=== PATIENT | female | born 1990 | race Caucasian/White ===

== ENCOUNTER → 2016-09-01 | Outpatient (CLI) | payer BC ==
[~2016-09-01] MED LIST: PREN1TAB29
== END | disposition home or self-care (01) ==
LOC: C.LABSPEC 13:59
PROVIDERS: ATTEND Obstetrics & Gynecology
DX: Z34.93 Encounter for supervision of normal pregnancy, unspecified, third trimester (principal)

== ENCOUNTER 2016-09-29 04:21 | Inpatient (IN) | payer BC ==
[~2016-09-29] VITALS: Ht 160 cm; Wt 97.5 kg
[2016-09-29] MEDS ORDERED: LACTATED RINGER'S 1000ML 1,000 ML IV SCH (04:51)
[2016-09-29] MEDS ORDERED: LACTATED RINGER'S 1000ML 1,000 ML IV PRN (04:51)
[2016-09-29] MEDS ORDERED: PENICILLIN G POTASSIUM IV 3 MU in DEXTROSE 5% 100ML 100 ML IV PRN (05:00)
[2016-09-29] MEDS ORDERED: EpHEDrine SULFATE INJ 50 MG/ML AMP ONE (05:01)
[2016-09-29] MEDS ORDERED: FENTANYL 2MCG/ML ROPIV 1.25MG/ML 100ML BAG EPI ONE (05:01)
[2016-09-29] MEDS ORDERED: BUPIVACAINE 0.25% 30 ML VIAL ONE (05:01)
[2016-09-29] MEDS ORDERED: FENTANYL CITRATE INJ 50 MCG/1 ML 2 ML VIAL ONE (05:02)
[2016-09-29] MEDS ORDERED: PENICILLIN G POTASSIUM IV 6 MU in DEXTROSE 5% 250ML 250 ML IV ONE (05:15)
[2016-09-29 05:23] LABS: HEMATOCRIT 35.2 % (37-47); MEAN CELL VOLUME 85.4 fL (80-100); MEAN CORPUSCULAR HEMOGLOBIN 28.2 pg (25-34); PLATELET COUNT 172 K/uL (130-400); RED BLOOD COUNT 4.12 M/uL (4.2-5.4); WHITE BLOOD COUNT 13.32 K/uL (4.8-10.8)
[2016-09-29] MEDS ORDERED: LACTATED RINGER'S 1000ML 500 ML IV PRN ×2 (06:32→09:56)
[2016-09-29] MEDS ORDERED: NALOXONE HCL INJ 1 MG in SODIUM CHLORIDE 0.9% 1000ML 1,000 ML IV PRN ×4 (06:32)
[2016-09-29] MEDS ORDERED: DiphenhydrAMINE HCL 50 MG/ML VIAL IV PRN (06:45)
[2016-09-29] MEDS ORDERED: ONDANSETRON INJ 2 MG/ML 2 ML VIAL IV PRN (06:45)
[2016-09-29] MEDS ORDERED: FENTANYL 2MCG/ML ROPIV 1.25MG/ML 100ML BAG EPI PRN (06:45)
[2016-09-29] MEDS ORDERED: NALOXONE HCL INJ 0.4 MG/1 ML VIAL/CARP IV PRN (06:45)
[2016-09-29] MEDS ORDERED: NALBUPHINE HCL INJ 10 MG/ML AMP IV PRN (06:45)
[2016-09-29] MEDS ORDERED: EpHEDrine SULFATE INJ 50 MG/ML AMP IV PRN (06:45)
[2016-09-29] MEDS ORDERED: PROMETHAZINE HCL INJ 25 MG in SODIUM CHLORIDE 0.9% 50ML 50 ML IV PRN (06:45)
[2016-09-29 06:49] VITALS: Ht 160 cm; Wt 97.5 kg
--- NOTE | 2016-09-29 08:13 | Medical Student: [facility] ---
Med Student History & Physical Date of Service Sep 29, 2016. Chief Complaint LABOR History of Present Illness Source: patient Patient is 26 years old, , 40 weeks 1 day GA, MY 09/28/16 by LMP 12/23/15, here for normal labor. Patient started feeling contractions this morning at 0200. Around 0330 she had spontaneous rupture of membranes and came to the hospital at 0400. She denies MALIK, dizziness, vision changes, chest pain and SOB. She continues to feel movements and contractions. No fluid leaks or bleeding at the moment. 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 Her gynecologic history is insignificant with no history of abnormal pap smears or STDs. Her obstetrical history is significant for a in 04/2014 with no complications. Patient is blood type A +, rubella immune, VDRL/RPR nonreactive, negative HbsAg and HIV and negative G & C. OB History Obstetrical history is significant for a in 2013 at 40 weeks 2 days GA. Her daughter was 7 lbs 5 oz. There were no complications with the delivery. She had positive GBS culture during that as well. 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 Menstruation occurs every 29 days and usually lasts 4 days. Some mild cramping with periods. Patient has no history of abnormal pap smears. According to the patient, her last pap smear was during this . Patient has no history of STDs as well. Past Medical History Past medical history is significant for a soft tissue neoplasm of the knee. Past Surgical History No past surgical history Family History paternal grandmother - breast CA paternal grandfather - Heart disease Social History Smoking Status: Never Smoker Smokeless Tobacco Use: No Alcohol Use: none Drug Use: none Marital Status: Housing status: lives with family Allergies Coded Allergies: No Known Allergies (Unverified , 09/29/16) Home Medications Vit W/ Ferrous Fumara () Review of Systems Constitutional: No chills, No fever Eyes: No worsening of vision Respiratory: No cough, No shortness of breath Cardiovascular: No chest pain, No palpitations Abdomen: No constipation, No diarrhea, No nausea, No pain, No vomiting Integumentary: + itch (from epidural ) Physical Exam Vital Signs: BP: 123/87 HR: 89 General Appearance: WD/WN, no apparent distress Respiratory/Chest: lungs clear, normal breath sounds Cardiovascular: regular rate, rhythm, no edema, no gallop, no murmur Extremities: normal inspection, normal capillary refill Skin: normal color, warm/dry cervical exam: 7 cm dilated, 90% effaced, -1 station Monitoring External Monitor: Scalp Monitoring: Category 2 - HR 160, moderate variability, present accelerations, absent late and early decelerations, present variable decelerations Tocodynamometer: contractions every 3-4 minutes Laboratory Results 09/29/16 05:15 Test 09/29/16 05:15 Red Blood Count 4.12 M/uL (4.2-5.4) Mean Corpuscular Volume 85.4 fL (80-100) Mean Corpuscular Hemoglobin 28.2 pg (25-34) Mean Corpuscular Hemoglobin Concent 33.0 g/dl (32-36) RDW Standard Deviation 45.3 fL (36.4-46.3) RDW Coefficient of Variation 14.6 % (11.5-14.5) Mean Platelet Volume 12.0 fL (7.4-10.4) Assessment and Plan 26 year old , 40 weeks 1 day GA, MY 09/28/16 by LMP 12/23/15, here for normal labor. GBS positive culture. Epidural in place. Rupture of membranes 4.5 hours @ 0800. Category 2 Scalp Monitoring. Patient is currently in active stage 1 of labor. Continue scalp monitoring and periodic cervical exam checks.
--- NOTE | 2016-09-29 09:07 | Medical Student: [facility] ---
Medical Student Progress Note SUBJECTIVE: Patient is a 26 year old , 40 weeks 1 day GA, MY 09/28/16 by LMP 12/23/15 who continues to be in normal labor. Denies MALIK, dizziness, vision changes, chest pain, and SOB. Continues to feel movement and contractions. No bleeding or fluid leaks. Patient feels comfortable. OBJECTIVE: Vitals: temp 99.0, BP 109/55, HR 101 Cardio: RRR, no murmurs, gallops or rubs Pulm: CTAB, no rhonchi/wheezes/rales Lower extremities: no erythema or tenderness Cervical Exam: 8 cm dilated, 100% effaced, -1 station Scalp Monitoring: Category 2 - HR 170, moderate variability, present accelerations, present early decelerations, absent variable and late decelerations Tocodynamometer: contractions every 3-4 minutes ASSESSMENT & PLAN 26 year old , 40 weeks 1 day GA, MY 09/28/16 by LMP 12/23/15, continues to be in normal labor. GBS positive culture. ROMs 5.5 hours @ 0900. Patient is in active stage 1 of labor. Category 2 heart tracing. Plan is to start 2nd dose of IV penicillin G because of mild fever. Continue scalp monitoring and periodic cervical exam checks.
[2016-09-29] MEDS ORDERED: OXYTOCIN 30 UNITS/500ML NSS IV PRN ×2 (10:00→12:30)
--- NOTE | 2016-09-29 10:03 | Medical Student: [facility] ---
Medical Student Progress Note SUBJECTIVE: Patient is a 26 year old , 40 weeks 1 day GA, MY 09/28/16 by LMP 12/23/15 who continues to be in normal labor. Denies MALIK, dizziness, vision changes, chest pain, and SOB. Continues to feel movement and contractions. No bleeding or fluid leaks. Patient feels comfortable. OBJECTIVE: Vitals: BP 112/56, HR 90 Cardio: RRR, no murmurs, gallops or rubs Pulm: CTAB, no rhonchi/wheezes/rales Lower extremities: no erythema or tenderness Cervical Exam: 8 cm dilated, 90% effaced, -2 station Scalp Monitoring: Category 2 - HR 165, moderate variability, present accelerations, present variable decelerations, absent early and late decelerations Tocodynamometer: contractions every 3-4 minutes ASSESSMENT & PLAN: 26 year old , 40 weeks 1 day GA, MY 09/28/16 by LMP 12/23/15, continues to be in normal labor. GBS positive culture. ROMs 6.5 hours @ 0900. Patient is in active stage 1 of labor. Category 2 heart tracing. Epidural is in place. -Continue IV Penicillin G 100 mL/hr d/t GBS positivity -Continue scalp monitoring -Continue periodic cervical exam check -Start IV Pitocin 30 units UD PRN to help with labor progression
--- NOTE | 2016-09-29 10:58 | Medical Student: [facility] ---
Medical Student Progress Note SUBJECTIVE: Patient is a 26 year old , 40 weeks 1 day GA, MY 09/28/16 by LMP 12/23/15 who continues to be in normal labor. She started feeling uncomfortable and wanted to push. OBJECTIVE: Cervical Exam:anterior cervical lip Scalp Monitoring: Category 2 - HR 160, moderate variability, present accelerations, present variable decelerations, absent early and late decelerations Tocodynamometer: contractions every 3 minutes ASSESSMENT & PLAN: 26 year old , 40 weeks 1 day GA, MY 09/28/16 by LMP 12/23/15, continues to be in normal labor. GBS positive culture. ROMs 8.5 hours @ 1100. Patient is in active stage 1 of labor. Category 2 heart tracing. Epidural is in place. Plan is to wait to push until anterior cervical lip is reduced. -Continue IV Penicillin G 100 mL/hr d/t GBS positivity -Continue scalp monitoring -Continue periodic cervical exam check -hold IV Pitocin for now
[2016-09-29] MEDS ORDERED: HYDROCORTISONE ACETATE 25 MG SUPP PR PRN (12:30)
[2016-09-29] MEDS ORDERED: LANOLIN OINT EXT PRN ×2 (12:30)
[2016-09-29] MEDS ORDERED: ACETAMINOPHEN 325 MG TAB PO PRN (12:30)
[2016-09-29] MEDS ORDERED: DIPHTHERIA/TETANUS/PERTUSSIS 0.5 ML SYR/VIAL IM. ONE (12:30)
[2016-09-29] MEDS ORDERED: BENZOCAINE 20% AER SPR 82.5 GM CAN EXT PRN (12:30)
[2016-09-29] MEDS ORDERED: SUPERCREAM 0.870 % 15GM JAR EXT PRN (12:30)
[2016-09-29] MEDS ORDERED: ACETAMINOPHEN/CODEINE 300/30MG TAB PO PRN ×2 (12:30)
[2016-09-29] MEDS ORDERED: OXYCODONE/ACETAMINOPHEN 5-325 TAB PO PRN (12:30)
--- NOTE | 2016-09-29 12:31 | Medical Student: [facility] ---
Medical Student Delivery Note PRE-DELIVERY DIAGNOSIS: 26 year old , 40 weeks & 1 day GA, normal labor POST-DELIVERY DIAGNOSIS: same PROCEDURE: Normal spontaneous vaginal delivery ESTIMATED BLOOD LOSS: 350 cc FINDING: viable male , apgars 8/10, weight pending DESCRIPTION OF DELIVERY: Patient received epidural and progressed to complete labor. The patient spontaneously vaginally delivered a viable male . The was delivered in the right occiput anterior position. After the head was delivered, meconium was appreciated. The mouth and nares were then suctioned. No nuchal cord was noted. Next, the anterior shoulder was delivered followed by the posterior shoulder. Then the body was delivered. The baby was warmed and dried and subsequently placed on the mother's chest. The baby immediately cried. The cord was doubly clamped and cut for cord gas. Cord blood was then collected. A gush of blood was expelled from the vagina. Manual massage was then applied to the uterus.The placenta was delivered spontaneously.The placenta was intact with 2 umbilical arteries, 1 umbilical vein and all cotyledons. Next, the perineum, vagina and cervix were inspected for any tears. No perineal tears were appreciated. Sponges, instruments, and needles were counted and correct at the end of the delivery. Hemostasis was achieved and Oxytocin started.
--- NOTE | 2016-09-29 12:41 | DELIVERY SUMMARY ---
DATE OF OPERATION: 09/29/2016 DATE OF DELIVERY: 09/29/2016. PREOPERATIVE DIAGNOSIS: 1. Intrauterine at 40-1/7 weeks. 2. Active labor. POSTOPERATIVE DIAGNOSIS: 1. Intrauterine at 40-1/7 weeks. 2. Active labor. 3. Thick meconium. PROCEDURE: 1. Epidural anesthesia. 2. Pitocin augmentation. 3. Normal spontaneous vaginal delivery. SURGEON: Dr. Cantor. DRILL PRESS SET UP OPERATOR: Luisana Lee MS3. PROCEDURE: The patient presented to labor and delivery in active labor. She was admitted and underwent an epidural anesthetic. She progressed from 7-8 slowly, Pitocin augmentation was ordered and then she progressed to complete with a need to push. Unfortunately though, she had a persistent anterior lip therefore we did start some Pitocin that never reached about 3 milliunits per minute and labored down for an hour and then the patient pushed x2 to deliver a viable male infant in GREG presentation. There was no nuchal cord. The nose and mouth were bulb suctioned on the perineum. The rest of the infant was then delivered without difficulty. The nose and mouth were again bulb suctioned as the was placed on the maternal abdomen for drying and attention there was immediate cry. Cord blood and segment were obtained. The placenta was delivered spontaneously intact with a 3-vessel cord. Cervix, sulci and rectum as well as the perineum was examined and found to be intact. Hemostasis was obtained with dilute Pitocin and fundal massage. Apgars 8 and 10. Weight pending. Mother and baby doing well at the end of the delivery. I attest to the content of the Intraoperative Record and any orders documented therein. Any exceptio ns are noted below.
--- NOTE | 2016-09-29 13:56 | Anesthesia Procedure Note ---
Anesthesia Epidural Removal Nt Date & Time Sep 29, 2016 at 13:56 Vital Signs Pain Intensity: 0.0 Notes Mental Status: alert / awake / arousable, participated in evaluation Nausea / Vomiting: adequately controlled Pain: adequately controlled Airway Patency, RR, SpO2: stable & adequate BP & HR: stable & adequate Hydration State: stable & adequate Neuraxial Anesthesia: was administered Anesthetic Complications: no major complications apparent, pt satisfied with anesthetic care Epidural: removed without complications, with tip intact
[2016-09-29 16:00] VITALS: BP 109/64; PULSE 92; TEMP 36.8
[2016-09-29] MEDS: DOCUSATE SODIUM 100 MG CAP PO SCH (19:38)
[2016-09-29] MEDS: IBUPROFEN 600 MG TAB PO PRN (19:39)
[2016-09-29 19:45] VITALS: BP 113/62; PULSE 87; TEMP 36.8
[2016-09-30] VITALS (7 sets, daily range): BP systolic 92–112; BP diastolic 56–70; PULSE 76–91; TEMP 36.2–37; O2SAT 98–99
--- NOTE | 2016-09-30 07:25 | Medical Student: [facility] ---
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 Subjective conversation w/ patient Ambulation: ambulating normally Voiding: no voiding problems Passing Gas: Yes Diet Tolerance: Regular Diet Lochia: Moderate Feeding Type: Breast Feeding Pain: back pain Review of Systems Constitutional: No chills, No fever Respiratory: No cough, No shortness of breath Cardiac: + edema (lower extremity edema bilaterally ), No chest pain, No palpitations Abdomen: No constipation, No diarrhea, No nausea, No pain, No vomiting Female : No dysuria Objective Vital Signs Date Time Temp Pulse Resp B/P Pulse Ox O2 Delivery O2 Flow Rate FiO2 09/30/16 03:30 36.2 89 18 101/67 Room Air 09/30/16 00:00 36.6 80 18 92/56 Room Air 09/30/16 00:00 Room Air 09/29/16 19:45 36.8 87 16 113/62 Room Air 09/29/16 16:00 Room Air 09/29/16 16:00 36.8 92 20 109/64 Room Air Physical Exam General Appearance: WELL-APPEARING, NO APPARENT DISTRESS Respiratory/Chest: lungs clear, normal breath sounds Cardiovascular: regular rate, rhythm, no gallop, no murmur Abdomen: normal bowel sounds Fundus: Firm, Non-Tender, Relation to Umbilicus (at umbilicus ) Extremities: no calf tenderness, + pedal edema (3 + pedal edema bilaterally ) Laboratory Results Last 24 Hours Test 09/30/16 04:44 Medications Medications Administered Medications (Trade) Dose Ordered Sig/Pablo Route Start Time Stop Time Status Last Admin Dose Admin Penicillin G Potassium 6 mu/ Dextrose 262 ml @ 250 mls/hr TODAY@0515 ONCE IV 09/29/16 05:15 09/29/16 06:17 DC 09/29/16 05:29 250 MLS/HR Penicillin G Potassium 3 mu/ Dextrose 106 ml @ 100 mls/hr Q4H PRN IV 09/29/16 05:00 09/29/16 12:30 DC 09/29/16 09:27 100 MLS/HR Lactated Ringer's (Lr 1000ml) 1,000 ml @ 125 mls/hr Q8H IV 09/29/16 04:51 09/29/16 12:30 DC 09/29/16 07:58 125 MLS/HR Bupivacaine HCl (Sensorcaine 0.25% Inj) 30 ml STK-MED ONCE .ROUTE 09/29/16 05:01 09/29/16 05:03 DC 09/29/16 06:37 30 ML Ephedrine Sulfate (EpHEDrine SULFATE INJ) 50 mg STK-MED ONCE .ROUTE 09/29/16 05:01 09/29/16 05:03 DC 09/29/16 06:39 15 MG Fentanyl/ Ropivacaine (Fentanyl 2MCG/ Ml/Ropivacaine 1.25MG/ML) 100 ml STK-MED ONCE EPI 09/29/16 05:01 09/29/16 05:03 DC 09/29/16 06:34 100 ML Fentanyl Citrate (Fentanyl Inj) 100 mcg STK-MED ONCE .ROUTE 09/29/16 05:02 09/29/16 05:03 DC 09/29/16 06:38 25 MCG Fentanyl/ Ropivacaine (Fentanyl 2MCG/ Ml/Ropivacaine 1.25MG/ML) 100 ml PRN PRN EPI 09/29/16 06:45 09/29/16 12:30 DC 09/29/16 07:14 100 ML Oxytocin (Pitocin IV) 30 units UD PRN IV 09/29/16 10:00 09/29/16 12:30 DC 09/29/16 10:57 30 UNITS Ibuprofen (Motrin Tab) 600 mg Q4H PRN PO 09/29/16 12:30 10/29/16 12:29 09/29/16 19:39 600 MG Docusate Sodium (coLACE CAP) 100 mg BID PO 09/29/16 20:00 10/29/16 19:59 09/29/16 19:38 100 MG Assessment and Plan Post- Day Number: 1 Continue Routine Care: 26 year old, , PP day 1, GBS carrier, s/p . H & H pending. Patient will continue to receive routine care today d/t GBS carrier status. -vitals stable and WNL -bloody type A +, rubella immune -doing well clinically -tolerating PO diet -pain well controlled with 600 mg Ibuprofen q4hr PO PRN -encourage ambulation & fluids -continue routine care today
--- NOTE | 2016-09-30 07:37 | OB/GYN Progress Note ---
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 Subjective conversation w/ patient Ambulation: ambulating normally Voiding: no voiding problems, no incontinence Diet Tolerance: Regular Diet Lochia: Moderate Feeding Type: Breast Feeding Pain: lower back pain well controlled Review of Systems Constitutional: No chills, No fever Respiratory: No cough, No shortness of breath, No sputum Cardiac: No chest pain, No palpitations Breast: No breast pain, No change in shape Abdomen: No nausea, No pain, No vomiting Objective Vital Signs Date Time Temp Pulse Resp B/P Pulse Ox O2 Delivery O2 Flow Rate FiO2 09/30/16 03:30 36.2 89 18 101/67 Room Air 09/30/16 00:00 36.6 80 18 92/56 Room Air 09/30/16 00:00 Room Air 09/29/16 19:45 36.8 87 16 113/62 Room Air 09/29/16 16:00 Room Air 09/29/16 16:00 36.8 92 20 109/64 Room Air Physical Exam General Appearance: WELL-APPEARING Respiratory/Chest: chest non-tender, lungs clear Cardiovascular: regular rate, rhythm, no edema Abdomen: normal bowel sounds Fundus: Firm, Non-Tender, Relation to Umbilicus (1 cm below umbilicus) Extremities: normal range of motion, non-tender, no calf tenderness Laboratory Results Last 24 Hours Test 09/30/16 04:44 Assessment and Plan Post- Day Number: 1 Continue Routine Care: 26 year old post day 1 - vitals reviewed and within normal limits - blood type A+, rubella immune, GBS+ - Pt doing well clinically - Encourae ambulation, monitor and control pain with motrin prn, resume regular diet and monitor lochia - encourage - Continue care Resident Physician Supervision Note: I interviewed and examined the patient. Discussed with Dr. Swan and agree with findings and plan as documented in the note. Any exceptions or clarifications are listed here: Doing well. Routine care. Documented By: Radha Cantor
[2016-09-30] MEDS: PRENATAL VITAMIN TAB PO SCH (07:56)
[2016-09-30] MEDS: DOCUSATE SODIUM 100 MG CAP PO SCH ×2 (07:56→19:26)
[2016-09-30 09:07] LABS: HEMATOCRIT 34.2 % (37-47)
[2016-09-30] MEDS: IBUPROFEN 600 MG TAB PO PRN ×3 (11:13→23:28)
[2016-10-01] MEDS: IBUPROFEN 600 MG TAB PO PRN (04:28)
--- NOTE | 2016-10-01 06:14 | Discharge Instructions ---
Discharge Instructions Admission Reason for Admission: LABOR Discharge Discharge Diagnosis / Problem: s/p Spontaneous Vaginal Delivery Discharge Goals Goal(s): Routine recovery after delivery Medications Continue Dispensed Medications: supercream, dermaplast, tucks, lansinoh Activity Recommendations Activity Limitations: per Instructions/Follow-up section . Instructions / Follow-Up Instructions / Follow-Up ACTIVITY RECOMMENDATIONS: * Gradual return to full activity over the next 2-3 weeks. * No lifting - nothing heavier than baby over the next 2-3 weeks. * Do not engage in vigorous exercise, sexual activity or sports until cleared by your physician. * Do not drive or operate any motorized equipment until cleared by your physician. * You may shower/bathe daily. MEDICATIONS: For discomfort or pain, you may use Acetaminophen (Tylenol), Ibuprofen (Advil), or Naproxen (Aleve) following the package directions. For constipation you may use Colace following the package directions. BREAST CARE: If you are not breast feeding: * Wear a supportive bra 24 hours a day for one to two weeks. * Avoid stimulating your breasts and nipples as much as possible during the first few weeks after delivery. * When taking a shower, have the warm water hit your back, not breasts. * When your breasts feel full, apply ice packs. Usually three to four times a day helps ease the discomfort. * Take a mild pain medication (Tylenol / Motrin) when you are uncomfortable. If breast feeding: * Use breast milk to lubricate nipples. Lansinoh cream may be used for sore nipples. You do not need to remove cream prior to breast feeding. If using a different brand of cream, check the label for directions regarding removal of cream prior to nursing. * Wear a supportive bra. * If having problems with breasts or breast feeding, call a bridal sales consultant or your health care provider. EPISIOTOMY CARE: After delivery, if you have an episiotomy (stitches), the following steps will ease discomfort and aid healing. * For the first 24 hours after delivery, place ice packs next to your episiotomy to help reduce swelling. * After the first 24 hour-period, sitz baths, either portable or in the tub, are suggested. A shower with a shower arm sprayed over the episiotomy may be comforting. * Concha care should be done after each voiding and bowel movement. Squirt warm water from a plastic bottle over the perineum (region of the body between the anus and urinary opening) and pat dry. * Use Dermoplast to ease discomfort. Shake container. [place] directly over the episiotomy. Place a Tucks on a clean sanitary pad next to your episiotomy. SPECIAL CARE INSTRUCTIONS: When you are discharged from the hospital, it is important for you to follow the instructions listed below: * During the first week at home, you should be able to care for yourself and your baby. In addition, the usual light household activities are encouraged. * Limit your activities to the way you feel. Do not try to clean the house or move furniture. Be sensible. * If you actively engage in sports and have done so up until the time of your delivery, you may resume these activities as soon as you feel able. This may take up to one month or even longer. Use good judgment. * Continue to take your vitamins for at least six weeks after the of your baby. * Your diet need not be limited unless you were on a special diet before your delivery. Breast-feeding mothers need around 2500 calories per day and at least 64-80 ounces of fluid per day (8 to 10 glasses). * You should eat foods from the four major food groups. Crash diets or fad diets are to be avoided. Eating lean meats, fresh fruits and vegetables, low-fat dairy products, high fiber foods and a regular exercise program, will help you get back to your pre- weight without putting your health at risk. * Constipation is sometimes a problem after delivery. Take a mild laxative as needed. If breast feeding, Milk of Magnesia is acceptable to use. You may use a suppository or Fleets enema if no episiotomy. * A daily shower or tub bath is suggested. Be sure to thoroughly and gently dry the perineum. * A bloody vaginal discharge will usually continue until around four weeks post . A small amount of bleeding may continue for as long as six weeks. Vaginal discharge changes from the bright red bleeding after delivery to pink then brownish and finally yellowish-pink before becoming white and disappearing. * Bleeding may increase with activity. Your first period may come in 4-8 weeks. If you are breast feeding, your period may be delayed even longer. * [place] (sex) can begin whenever both you and your partner feel comfortable and do not have any form of genital infection. It is recommended that you wait at least six weeks for internal and external healing to occur. If you have questions, please talk to your health care practitioner. A condom should be used to prevent infection and . * Foreplay, gentle intercourse and lubrication is very important the first several times to prevent pain. A water-based lubricant such as K-Y jelly or Astroglide may be used. * If you have RH negative blood and your baby is RH positive, you will receive RHOGAM by injection prior to discharge. The nurse will give you a card to keep with you that has the date and place that you received RHOGAM after delivery. * During your care, you had a Rubella screen done to check for the presence of rubella antibodies in your blood. If your test was negative, you will receive a Rubella vaccine prior to discharge. This vaccine may cause a fever, soreness at the injection site and flu-like symptoms. If these symptoms persist, notify your health care practitioner. is not advised for one month after a Rubella vaccine. * Verbalizes understanding of car seat law as reviewed with patient nursing. * Car Seat hand-out given and reviewed with patient by nursing. * Shaken baby information reviewed with patient by nursing. Call you doctor if: * Heavy bleeding (saturating several pads an hour) or passing clots the size of your fist. * A fever >101 degrees F (38.3 degrees C) on two occasions four hours apart and /or chills. * Unusual pain in the pelvic or vaginal areas. * "Baby Blues" lasting longer than two weeks. If you have any questions or concerns, call your health care practitioner at . FOLLOW UP VISIT: * Please call the office at to schedule a 6 week examination. It is important you keep this appointment. It is important for you to make arrangements for either yearly or twice yearly check-ups thereafter. Current Hospital Diet Patient's current hospital diet: Regular OB Diet Discharge Diet Recommended Diet: Regular OB Diet Pending Studies Studies pending at discharge: no Medical Emergencies . Who to Call and When: Medical Emergencies: If at any time you feel your situation is an emergency, please call 911 immediately. . Non-Emergent Contact Non-Emergency issues call your: Primary Care Provider, Photography Teacher . . "Provider Documentation" section prepared by Herrera Swan. VTE Core Measure Inpt VTE Proph given/why not?: Treatment not indicated
--- NOTE | 2016-10-01 07:00 | Progress Note ---
Subjective Oct 01, 2016. Subjective conversation w/ patient, physical exam Ambulation: ambulating normally Voiding: no voiding problems Diet Tolerance: Regular Diet Lochia: Small Feeding Type: Breast Feeding Pain: no pain issues. Objective Vital Signs Date Time Temp Pulse Resp B/P Pulse Ox O2 Delivery O2 Flow Rate FiO2 09/30/16 23:33 36.8 80 18 99/64 Room Air 09/30/16 23:33 Room Air 09/30/16 15:55 36.8 91 16 112/70 99 Room Air 09/30/16 15:10 36.8 88 18 112/70 99 Room Air 09/30/16 15:10 99 Room Air 09/30/16 11:28 37.0 86 20 96/62 99 Room Air 09/30/16 07:55 36.7 76 18 107/70 98 Room Air 09/30/16 07:55 Room Air Physical Exam General Appearance: WELL-APPEARING, WD/WN, NO APPARENT DISTRESS Respiratory/Chest: lungs clear Cardiovascular: regular rate, rhythm Abdomen: non tender, soft Fundus: Firm, Relation to Umbilicus (2 down) Extremities: non-tender Laboratory Results Last 24 Hours Test 09/30/16 08:52 Hemoglobin 11.1 g/dL Hematocrit 34.2 % Assessment and Plan Post- Day#: 2 Continue Routine Care: stable, instructions reviewed, f/u 6wks, d/c home.
[2016-10-01 07:30] VITALS: BP 97/65; PULSE 82; TEMP 36.7
[2016-10-01] MEDS: PRENATAL VITAMIN TAB PO SCH (08:23)
[2016-10-01] MEDS: DOCUSATE SODIUM 100 MG CAP PO SCH (08:23)
[2016-10-01 10:49] VITALS: BP_DIAS 65; PULSE 82; TEMP 36.7
== END 2016-10-01 13:05 | disposition home or self-care (01) | DRG 775 ==
LOC: C.OPB 04:21 → C.LD 04:21 → C.OPB 04:53 → C.OBG 16:08
PROVIDERS: ADMIT Obstetrics & Gynecology; ATTEND Obstetrics & Gynecology
PROC: 10E0XZZ Delivery of Products of Conception, External Approach (ICD-10-PCS; principal; 2016-09-29)
DX: O48.0 Post-term pregnancy (principal); Z37.0 Single live birth; O42.02 Full-term premature rupture of membranes, onset of labor within 24 hours of rupture; Z3A.40 40 weeks gestation of pregnancy; O77.0 Labor and delivery complicated by meconium in amniotic fluid; O76 Abnormality in fetal heart rate and rhythm complicating labor and delivery; O99.824 Streptococcus B carrier state complicating childbirth; O99.02 Anemia complicating childbirth; D64.9 Anemia, unspecified; O99.214 Obesity complicating childbirth; E66.9 Obesity, unspecified; Z68.38 Body mass index [BMI] 38.0-38.9, adult

== ENCOUNTER 2023-01-23 14:33 | Inpatient (IN) ==
[2023-01-23] MEDS ORDERED: LIDOCAINE 1% LOCAL 20 ML VIAL INFIL PRN (15:30)
[2023-01-23] MEDS ORDERED: OXYTOCIN 30 UNITS/500 ML BAG IV PRN ×2 (15:30)
[2023-01-23] MEDS ORDERED: PENICILLIN G POTASSIUM 6 MU in DEXTROSE 5% 250 ML IV STA (15:30)
--- NOTE | 2023-01-23 15:38 | History & Physical Report ---
Date of Service January 23, 2023 Assessment & Plan (1) GDM (gestational diabetes mellitus): (2) Carrier of group B Streptococcus: (3) SROM (spontaneous rupture of membranes): Plan 32 yo at 40 1/7 wga admitted w/ SROM VSS Fetus cat 1 Labor - will start pit A1GDM - q4h BG GBS+, pcn ordered Epidural prn History of Present Illness Chief Complaint: LOF Primary Care Provider: Wanda Johnson MD 32 yo at 40 1/7 wga presents w/ LOF since 8am. Has just felt slightly wet all morning, went to bathroom and went outside and felt like something was still just coming out. No big gush. 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 Hx: G1 2013 at 40 wks G2 2016 at 40 wks G3 current Denies hx STIs 06/2022 ascus/hpv- Allergies Allergy/AdvReac Type Severity Reaction Status Date / Time No Known Allergies Allergy Verified 01/18/23 13:33 Home Medications Medication Instructions Recorded Confirmed Type prenat.vits,anthony,jnj-liaa-oxipf 1 tab PO DAILY 07/15/22 01/23/23 History acetone (urine) test (Ketone Urine #50 ea 11/12/22 01/18/23 Rx Test strips) blood sugar diagnostic (OneTouch #150 ea 11/12/22 01/18/23 Rx Verio test strips) blood-glucose meter (OneTouch #1 ea 11/12/22 01/18/23 Rx Verio Reflect Meter) lancets 33 gauge (OneTouch Delica #150 ea 11/12/22 01/18/23 Rx Lancets) Patient History Medical History Soft tissue neoplasm Varicella vaccination Surgical History No history of previous surgery Family History Grandmother (Paternal) Breast cancer Denies family history of Ovarian cancer Colorectal cancer Social History Smoking Status: Never smoker Do You Dip or Chew Tobacco: No; Hx Alcohol Use: No Hx Substance Use: No Preferred Language: Citizen Of [place] Communication Ability: Effective Boat Rigger Required: No Beliefs That Will Affect Care: None marital status: marital status details: Amado Pizarro (33) [phone] Current Living Situation: Spouse Current Living Situation Comment: lives with spouse, 2 children, dog, rabbits, outside cats current occupational status: unemployed 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 Feels Safe at Home: Yes Safety Concerns: Feels Safe At This Time Assistive Devices: None Physical Exam Genitourinary: OB Exam Abdomen: + vertex and + estimated weight (7-8) Manual OB Exam: + cervical dilation 3 cm, + cervical effacement 50%, + station - 2 and + amniotic fluid (+nitrazine, pooling, ferning) OB Exam Monitor Tracing: + external FHT monitor used, + external uterine monitor used (irritability) and + category I (150/mod/+accel/-decel) Results & Data Vital Signs (Past 12 Hours) Vital Signs Temp Pulse Resp BP 01/23/23 14:50 97.9 F 20 01/23/23 14:40 20 01/23/23 14:40 97.9 F 20 01/23/23 14:43 100 H 115/61 Laboratory Results OB Labs: Blood Type A Positive 06/15/22 Antibody Screen NEGATIVE 06/15/22 Hemoglobin 11.2 g/dl (12.0-16.0) L 11/03/22 Hematocrit 35.0 % (37.0-47.0) L 11/03/22 Mean Corpuscular Volume 88.4 fL (80.0-100.0) 06/15/22 Platelet Count 258 K/uL (130-400) 06/15/22 Rubella IgG Antibody Immune (Immune) 06/15/22 Rapid Plasma Reagin Nonreactive (Nonreactive) 06/15/22 Hepatitis B Surface Antigen. NON-REACTIVE (NON-REACTIVE) 06/15/22 Hepatitis C Antibody (EIA) NON-REACTIVE (NON-REACTIVE) 06/15/22 HIV (1&2) Ag and Ab Confirmation NON-REACTIVE (NON-REACTIVE) 06/15/22 Glucose 1 Hour 50 gm Load 133 mg/dl (70-130) H 08/12/22 OB Optional Labs: Chlamydia trachomatis RNA Not Detected (NotDetected) 06/15/22 Neisseria gonorrhoeae RNA Not Detected (NotDetected) 06/15/22 Labs Reviewed: declines cfdna, cf/sma - SLN Declines quad screen--mln GBS+ Diagnostic Findings 01/12 EFW 3451g 7lb 10oz 59% ant plac Coding Level of Care Code None Diagnoses GDM (gestational diabetes mellitus) O24.419 Carrier of group B Streptococcus Z22.330 SROM (spontaneous rupture of membranes)
[2023-01-23] MEDS: LACTATED RINGER'S 1,000 ML IV PRN ×2 (15:53→20:29)
[2023-01-23 16:17] LABS: Hematocrit (blood only) 36.8 % (37.0-47.0); Hemoglobin 12.5 g/dl (12.0-16.0); Mean Corpuscular Hemoglobin 27.9 pg (25.0-34.0); Mean Corpuscular Volume 82.1 fL (80.0-100.0); Mean Platelet Volume 12.3 fL (9.4-12.4); Platelet Count 237 K/uL (130-400); RDW Coefficient of Variation 14.6 % (11.5-14.5); RDW Standard Deviation 42.5 fL (36.4-46.3); Red Blood Count 4.48 M/uL (4.20-5.40); White Blood Count 14.95 K/ul (4.8-10.8)
[2023-01-23] MEDS ORDERED: PENICILLIN G POTASSIUM 3 MU in DEXTROSE 5% 100 ML IV PRN (18:30)
[2023-01-23] MEDS ORDERED: ePHEDrine sulfate 50 MG/ML AMP ONE (19:32)
[2023-01-23] MEDS ORDERED: SODIUM CHLORIDE 0.9% PF INJ 10 ML VIAL ONE (19:33)
[2023-01-23] MEDS ORDERED: fentaNYL 2MCG/ML ROPIVACAINE 1.25MG/ML 100 ML BAG EPI ONE (19:33)
[2023-01-23] MEDS ORDERED: BUPIVACAINE 0.25% PF 30 ML VIAL ONE ×2 (19:33→20:06)
[2023-01-23] MEDS ORDERED: fentaNYL citrate PF 100 MCG/2 ML VIAL ONE (19:33)
[2023-01-23] MEDS ORDERED: LIDOCAINE 2%/EPINEPHRINE 1:200,000 20 ML PF ONE (19:33)
--- NOTE | 2023-01-23 19:49 | Anesthesiology Consultation ---
Date of Service January 23, 2023 Assessment & Plan Chart Review Chart Review: Acceptable Risk for Labor Epidural Consults Requested none ASA ASA2 Proposed Anesthesia Anesthesia Type: Labor Epidural Risk / Benefits Reviewed With: PT / POA / Parent / Guardian, Accepts Plan and Informed Consent Obtained History Height/Weight Height: 5 ft 4 in Weight: 103.873 kg Allergies Allergy/AdvReac Type Severity Reaction Status Date / Time No Known Allergies Allergy Verified 01/18/23 13:33 Medications Home Medications Medication Instructions Recorded Confirmed Last Taken prenat.vits,anthony,hfl-dhkf-gruun 1 tab PO DAILY 07/15/22 01/23/23 01/22/23 21:00 acetone (urine) test (Ketone Urine #50 ea 11/12/22 01/18/23 Unknown Test strips) blood sugar diagnostic (OneTouch #150 ea 11/12/22 01/18/23 Unknown Verio test strips) blood-glucose meter (OneTouch #1 ea 11/12/22 01/18/23 Unknown Verio Reflect Meter) lancets 33 gauge (OneTouch Delica #150 ea 11/12/22 01/18/23 Unknown Lancets) Active Medications Generic Name Dose Route Start Last Admin Trade Name Freq PRN Reason Stop Dose Admin Oxytocin 30 units in 500 mls @ 10 mls/hr 01/23/23 15:30 01/23/23 19:06 Pitocin IV 01/25/23 15:29 0.6 units/hr .Q24H PRN 10 mls/hr Labor Induction/Augmentation Titration Protocol 0.6 UNITS/HR Lactated Ringer's 1,000 mls @ 125 mls/hr 01/23/23 15:30 01/23/23 15:53 Lr IV 01/25/23 15:29 125 mls/hr .Q8H PRN Administration L&D Protocol Protocol Past Medical History Medical History Soft tissue neoplasm Left knee Varicella vaccination Exercise / Class Metabolic Activity II 4-5 Yardwork/Stairs/Walk up hill Past Family History Family History Grandmother (Paternal) Breast cancer Denies family history of Ovarian cancer Colorectal cancer Past Surgical History Surgical History No history of previous surgery Past Anesthesia History No Hx of Anesthesia Complications and No Family Hx of Anesthesia Complications History of PONV No Hx of PONV and No Hx of Motion Sickness Social History Smoking Status: Never smoker Do You Dip or Chew Tobacco: No Hx Alcohol Use: No Hx Substance Use: No Physical Exam Vital Signs Last Vital Signs Temp 97.9 F 01/23/23 18:00 Pulse 74 01/23/23 19:44 Resp 18 01/23/23 19:00 BP 111/58 L 01/23/23 19:44 Pulse Ox 99 01/23/23 19:42 ENMT Mouth: no dentition abnormality Thyromental Distance: > or= 3.5 Finger Breadths Mallampati Class: II Neck normal visual inspection Respiratory normal respiratory effort Auscultation: lungs clear to auscultation bilaterally Cardiovascular Rate/Rhythm: regular rate and regular rhythm Testing Laboratory Results 01/23/23 15:50 01/23/23 15:50 POC Glucose 92
[2023-01-23] MEDS ORDERED: SODIUM CHLORIDE 0.9% PF INJ 10 ML VIAL EPI PRN (20:20)
[2023-01-23] MEDS ORDERED: NALBUPHINE HCL INJ 10 MG/ML AMP IV PRN (20:20)
[2023-01-23] MEDS ORDERED: ROPIVACAINE 0.5% PF 5 MG/ML 20 ML VIAL EPI PRN (20:20)
[2023-01-23] MEDS ORDERED: LIDOCAINE 2%/EPINEPHRINE 1:200,000 20 ML PF EPI STA (20:20)
[2023-01-23] MEDS ORDERED: SODIUM CHLORIDE 0.9% PF INJ 10 ML VIAL EPI STA (20:20)
[2023-01-23] MEDS ORDERED: BUPIVACAINE 0.25% PF 30 ML VIAL EPI STA (20:20)
[2023-01-23] MEDS ORDERED: diphenhydrAMINE 50 MG/ML VIAL IV PRN (20:20)
[2023-01-23] MEDS ORDERED: fentaNYL 2MCG/ML ROPIVACAINE 1.25MG/ML 100 ML BAG EPI PRN (20:20)
[2023-01-23] MEDS ORDERED: LIDOCAINE 2% MPF LOCAL 5 ML VIAL EPI PRN (20:20)
[2023-01-23] MEDS ORDERED: fentaNYL citrate PF 100 MCG/2 ML VIAL EPI STA (20:20)
[2023-01-23] MEDS ORDERED: fentaNYL citrate PF 100 MCG/2 ML VIAL EPI PRN (20:20)
[2023-01-23] MEDS ORDERED: NALOXONE HCL 0.4 MG/1 ML VIAL/CARP IV PRN (20:20)
[2023-01-23] MEDS ORDERED: BUPIVACAINE 0.25% PF 30 ML VIAL EPI PRN (20:20)
[2023-01-23] MEDS ORDERED: NALOXONE HCL 1 MG in SODIUM CHLORIDE 0.9% 1000ML 1,000 ML IV PRN (20:20)
[2023-01-23] MEDS ORDERED: ePHEDrine sulfate 50 MG/ML AMP IV PRN (20:20)
--- NOTE | 2023-01-23 20:57 | Labor Progress Brief Note ---
Date of Service January 23, 2023 Subjective comfortable w/ epidural Assessment & Plan (1) GDM (gestational diabetes mellitus): (2) Carrier of group B Streptococcus: (3) SROM (spontaneous rupture of membranes): Plan 32 yo at 40 1/7 wga admitted w/ SROM VSS Fetus cat 1 Labor - pit at 12, progress noted, and arom of forebag. Continue induction A1GDM - q4h BG GBS+, pcn ordered Epidural in place Admission and Anticipated Discharge Date Admission Date: January 23, 2023 Physical Exam Genitourinary: Manual OB Exam: + cervical dilation (4-5), + cervical effacement 50%, + station -2 and + amniotic fluid (arom forebag) OB Exam Monitor Tracing: + external FHT monitor used, + external uterine monitor used (q3-4) and + category I (150/mod/+accel/-decel) Results & Data Vital Signs (Past 12 Hours) Vital Signs Temp Pulse Resp BP Pulse Ox 01/23/23 14:50 97.9 F 20 01/23/23 20:52 100 01/23/23 20:52 74 01/23/23 20:47 100 01/23/23 20:47 76 01/23/23 20:42 100 01/23/23 20:42 89 01/23/23 20:37 100 01/23/23 20:37 79 01/23/23 20:32 100 01/23/23 20:32 79 01/23/23 20:27 100 01/23/23 20:27 75 01/23/23 20:27 105/58 L 01/23/23 20:25 76 01/23/23 20:25 105/59 L 01/23/23 20:23 91 H 01/23/23 20:23 104/57 L 01/23/23 20:22 100 01/23/23 20:22 83 01/23/23 20:22 101/51 L 01/23/23 20:20 81 01/23/23 20:20 109/46 L 01/23/23 20:17 100 01/23/23 20:17 87 01/23/23 20:14 83 01/23/23 20:14 134/79 01/23/23 20:12 72 L 01/23/23 20:12 97 H 01/23/23 20:10 91 06/10/23 20:10 87 01/23/23 20:07 100 01/23/23 20:07 91 H 01/23/23 20:06 91 H 01/23/23 20:06 117/65 01/23/23 20:02 99 01/23/23 20:02 110 H 01/23/23 19:57 99 01/23/23 19:57 104 H 01/23/23 19:54 96 H 01/23/23 19:54 118/58 L 01/23/23 19:52 100 01/23/23 19:52 77 01/23/23 19:47 100 01/23/23 19:47 85 01/23/23 19:44 74 01/23/23 19:44 111/58 L 01/23/23 19:42 99 01/23/23 19:42 81 01/23/23 19:16 82 01/23/23 19:16 108/56 L 01/23/23 19:14 82 01/23/23 19:14 177/150 H 01/23/23 19:00 18 01/23/23 19:00 18 01/23/23 18:00 18 01/23/23 18:00 97.9 F 18 01/23/23 18:02 81 01/23/23 18:02 106/60 01/23/23 17:30 18 01/23/23 17:30 18 01/23/23 17:00 18 01/23/23 17:00 18 01/23/23 16:30 18 01/23/23 16:30 18 01/23/23 16:00 18 01/23/23 16:00 18 01/23/23 16:55 82 01/23/23 16:55 105/58 L 01/23/23 14:40 20 01/23/23 14:40 97.9 F 20 01/23/23 14:43 100 H 115/61 Coding Level of Care Code None Diagnoses GDM (gestational diabetes mellitus) O24.419 Carrier of group B Streptococcus Z22.330 SROM (spontaneous rupture of membranes)
[2023-01-23] MEDS ORDERED: NURSING L&D Epidural Breakthrough Pain Update ONE (22:18)
--- NOTE | 2023-01-23 23:58 | Delivery Summary ---
Vaginal Delivery Summary Date of Service January 23, 2023 Vaginal Delivery Summary and 1st Degree LAC PREOPERATIVE DIAGNOSIS: 1. Single intrauterine at 40 1/7 wga 2. Premature rupture of membranes 3. A1GDM 4. GBS+ POSTOPERATIVE DIAGNOSIS: 1. Single intrauterine at 40 1/7 wga 2. Premature rupture of membranes 3. A1GDM 4. GBS+ 4. Delivered PROCEDURE: 1. Normal spontaneous vaginal delivery. SURGEON: Sherry Thornton MD ANESTHESIA: Epidural. ESTIMATED BLOOD LOSS: 300 mL FLUIDS: Continuous LR. URINE OUTPUT: None. COMPLICATIONS: None. CONDITION: Stable. INDICATIONS: 32 yo at 40 1/7 wga presented today with complaints of LOF and found to have ROM. On arrival was 3cm. Penicillin was started for GBS+ status and pitocin started for induction. She received an epidural for pain control and underwent AROM of forebag. She then progressed to complete and desired to push. FINDINGS: A viable male , weight pending with Apgars of 8 and 9 at 1 and 5 minutes respectively. SPECIMEN: Cord blood OPERATIVE REPORT: The patient progressed to 10 cm, 100% effaced and +2 station, pushed over intact perineum with anesthesia to deliver a viable male , weight and Apgars as above. Head of delivered in DESTINEE position. Nuchal cord was delivered through. Body and shoulders were delivered without difficulty. was delivered to maternal abdomen and nursing staff. Delayed cord clamping was performed for 60 seconds. Cord was clamped and cut. Cord blood was obtained. Placenta delivered spontaneously intact with 3-vessel cord. IV oxytocin and fundal massage were given for excellent hemostasis. Vagina, cervix, perineum, and placenta were inspected. A right labial and first degree laceration were noted and repaired in the usual fashion. A hemostatic left labial laceration was noted and not needed to be repaired. Sponge and needle counts correct x2. No sponges were left behind. Mother and stable in immediate period. [facility] Vaginal Delivery Charge Vaginal Delivery Codes: 17954 global code for the antepartum, delivery, and post- Delivery Type Details: and 1st Degree LAC
[2023-01-24] MEDS ORDERED: DIPHTHERIA/TETANUS/PERTUSSIS Vaccine (Tdap, Age 7+yrs) 0.5mL SYR/VL IM ONE (00:02)
[2023-01-24] MEDS ORDERED: HYDROCORTISONE ACETATE 25 MG SUPP PR PRN (00:02)
[2023-01-24] MEDS ORDERED: OXYTOCIN 30 UNITS/500 ML BAG IV PRN (00:02)
[2023-01-24] MEDS ORDERED: BENZOCAINE 20% AER SPR 82.5 GM CAN EXT PRN (00:02)
[2023-01-24] MEDS ORDERED: ACETAMINOPHEN 325 MG TAB PO PRN (00:02)
[2023-01-24] MEDS ORDERED: bisacodyL 10 MG SUPP PR PRN (00:02)
--- NOTE | 2023-01-24 00:41 | Anesthesia Procedure Note ---
Date of Service January 24, 2023 Anesthesia Post Epidural Note Vital Signs Vital Signs: Temp Pulse Resp BP Pulse Ox 36.6 C 80 18 114/79 100 01/23/23 18:00 01/24/23 00:28 01/23/23 19:00 01/24/23 00:28 01/23/23 23:37 Notes Mental Status: alert / awake / arousable Nausea / Vomiting: adequately controlled Pain: adequately controlled Airway Patency, RR, SpO2: stable & adequate BP & HR: stable & adequate Hydration State: stable & adequate Neuraxial Anesthesia: was administered and sensory block is resolving Anesthetic Complications: no major complications apparent and Pt Satisfied with anesthetic care Epidural: Removed without complications and With tip intact
[2023-01-24] MEDS: IBUPROFEN 600 MG TAB PO PRN ×3 (06:01→23:06)
--- NOTE | 2023-01-24 07:16 | Obstetrical Progress Note ---
Date of Service January 24, 2023 Assessment & Plan (1) Encounter for care and examination after delivery: 32 yo PP1 from , doing well -Meeting all pp milestones -Rh+/rubella immune/ -f/u 6 weeks for appt, continue routine pp care Subjective Ambulation: ambulating normally Voiding: no voiding problems Passing Gas:: Yes Diet Tolerance:: regular diet Lochia:: Small Feeding Type:: breast feeding Pain well managed with medication Review of Systems Denies fevers, chills, n/v, MALIK, CP, SOB Physical Exam Constitutional WD/WN, vitals as above no acute distress Respiratory normal respiratory effort, lungs clear to auscultation Cardiovascular RRR, no murmur, no edema Gastrointestinal (Abdomen) Percussion/Palpation: abdomen soft; abdomen nontender fundus firm at umbilicus and NT Musculoskeletal BLE symmetric, nonerythematous, nontender Results & Data Vital Signs (Past 12 Hours) Vital Signs Temp Pulse Pulse Resp BP BP Pulse Ox 01/24/23 02:30 98.8 F 82 16 100/56 L 97 01/24/23 01:57 97 H 117/61 01/24/23 01:43 108/52 L 01/24/23 01:28 82 107/50 L 01/24/23 00:58 75 95/63 L 01/24/23 00:43 81 109/61 01/24/23 00:28 80 114/79 01/24/23 00:13 70 107/57 L 01/24/23 00:00 75 91/51 L 01/23/23 23:44 78 01/23/23 23:44 119/52 L 01/23/23 23:37 100 01/23/23 23:37 121 H 01/23/23 23:32 100 01/23/23 23:32 99 H 01/23/23 23:27 100 01/23/23 23:27 79 01/23/23 23:22 98 01/23/23 23:22 67 01/23/23 23:17 100 01/23/23 23:17 68 01/23/23 23:12 99 01/23/23 23:12 69 01/23/23 23:12 104/52 L 01/23/23 23:07 98 01/23/23 23:07 66 01/23/23 23:02 98 01/23/23 23:02 66 01/23/23 22:59 69 01/23/23 22:59 102/49 L 01/23/23 22:57 99 01/23/23 22:57 75 01/23/23 22:52 99 01/23/23 22:52 66 01/23/23 22:47 99 01/23/23 22:47 72 01/23/23 22:43 72 01/23/23 22:43 101/54 L 01/23/23 22:42 100 01/23/23 22:42 72 01/23/23 22:37 99 01/23/23 22:37 76 01/23/23 22:32 99 01/23/23 22:32 67 01/23/23 22:27 100 01/23/23 22:27 77 01/23/23 22:22 100 01/23/23 22:22 73 01/23/23 22:17 100 01/23/23 22:17 77 01/23/23 22:14 74 01/23/23 22:14 103/60 01/23/23 22:12 100 01/23/23 22:12 79 01/23/23 22:07 100 01/23/23 22:07 71 01/23/23 22:02 100 01/23/23 22:02 83 01/23/23 21:57 99 01/23/23 21:57 73 01/23/23 21:57 110/62 01/23/23 21:52 100 01/23/23 21:52 78 01/23/23 21:47 99 01/23/23 21:47 76 01/23/23 21:44 68 01/23/23 21:44 107/58 L 01/23/23 21:42 99 01/23/23 21:42 79 01/23/23 21:37 99 01/23/23 21:37 89 01/23/23 21:32 100 01/23/23 21:32 77 01/23/23 21:28 80 01/23/23 21:28 102/57 L 01/23/23 21:27 100 01/23/23 21:27 80 01/23/23 21:22 100 01/23/23 21:22 75 01/23/23 21:17 100 01/23/23 21:18 92 01/23/23 21:17 73 01/23/23 21:18 76 01/23/23 21:14 71 01/23/23 21:14 100/59 L 01/23/23 21:12 100 01/23/23 21:12 73 01/23/23 21:07 100 01/23/23 21:07 76 01/23/23 21:02 99 01/23/23 21:02 75 01/23/23 20:58 76 01/23/23 20:58 155/73 H 01/23/23 20:57 100 01/23/23 20:57 71 01/23/23 20:52 100 01/23/23 20:52 74 01/23/23 20:47 100 01/23/23 20:47 76 01/23/23 20:42 100 01/23/23 20:42 89 01/23/23 20:37 100 01/23/23 20:37 79 01/23/23 20:32 100 01/23/23 20:32 79 01/23/23 20:27 100 01/23/23 20:27 75 01/23/23 20:27 105/58 L 01/23/23 20:25 76 01/23/23 20:25 105/59 L 01/23/23 20:23 91 H 01/23/23 20:23 104/57 L 01/23/23 20:22 100 01/23/23 20:22 83 01/23/23 20:22 101/51 L 01/23/23 20:20 81 01/23/23 20:20 109/46 L 01/23/23 20:17 100 01/23/23 20:17 87 01/23/23 20:14 83 01/23/23 20:14 134/79 01/23/23 20:12 72 L 01/23/23 20:12 97 H 01/23/23 20:10 91 01/23/23 20:10 87 01/23/23 20:07 100 01/23/23 20:07 91 H 01/23/23 20:06 91 H 01/23/23 20:06 117/65 01/23/23 20:02 99 01/23/23 20:02 110 H 01/23/23 19:57 99 01/23/23 19:57 104 H 01/23/23 19:54 96 H 01/23/23 19:54 118/58 L 01/23/23 19:52 100 01/23/23 19:52 77 01/23/23 19:47 100 01/23/23 19:47 85 01/23/23 19:44 74 01/23/23 19:44 111/58 L 01/23/23 19:42 99 01/23/23 19:42 81 01/23/23 19:16 82 01/23/23 19:16 108/56 L O2 Del Method 01/24/23 02:30 Room Air 01/24/23 01:57 01/24/23 01:43 01/24/23 01:28 01/24/23 00:58 01/24/23 00:43 01/24/23 00:28 01/24/23 00:13 01/24/23 00:00 01/23/23 23:44 01/23/23 23:44 01/23/23 23:37 01/23/23 23:37 01/23/23 23:32 01/23/23 23:32 01/23/23 23:27 01/23/23 23:27 01/23/23 23:22 01/23/23 23:22 01/23/23 23:17 01/23/23 23:17 01/23/23 23:12 01/23/23 23:12 01/23/23 23:12 01/23/23 23:07 01/23/23 23:07 01/23/23 23:02 01/23/23 23:02 01/23/23 22:59 01/23/23 22:59 01/23/23 22:57 01/23/23 22:57 01/23/23 22:52 01/23/23 22:52 01/23/23 22:47 01/23/23 22:47 01/23/23 22:43 01/23/23 22:43 01/23/23 22:42 01/23/23 22:42 01/23/23 22:37 01/23/23 22:37 01/23/23 22:32 01/23/23 22:32 01/23/23 22:27 01/23/23 22:27 01/23/23 22:22 01/23/23 22:22 01/23/23 22:17 01/23/23 22:17 01/23/23 22:14 01/23/23 22:14 01/23/23 22:12 01/23/23 22:12 01/23/23 22:07 01/23/23 22:07 01/23/23 22:02 01/23/23 22:02 01/23/23 21:57 01/23/23 21:57 01/23/23 21:57 01/23/23 21:52 01/23/23 21:52 01/23/23 21:47 01/23/23 21:47 01/23/23 21:44 01/23/23 21:44 01/23/23 21:42 01/23/23 21:42 01/23/23 21:37 01/23/23 21:37 01/23/23 21:32 01/23/23 21:32 01/23/23 21:28 01/23/23 21:28 01/23/23 21:27 01/23/23 21:27 01/23/23 21:22 01/23/23 21:22 01/23/23 21:17 01/23/23 21:18 01/23/23 21:17 01/23/23 21:18 01/23/23 21:14 01/23/23 21:14 01/23/23 21:12 01/23/23 21:12 01/23/23 21:07 01/23/23 21:07 01/23/23 21:02 01/23/23 21:02 01/23/23 20:58 01/23/23 20:58 01/23/23 20:57 01/23/23 20:57 01/23/23 20:52 01/23/23 20:52 01/23/23 20:47 01/23/23 20:47 01/23/23 20:42 01/23/23 20:42 01/23/23 20:37 01/23/23 20:37 01/23/23 20:32 01/23/23 20:32 01/23/23 20:27 01/23/23 20:27 01/23/23 20:27 01/23/23 20:25 01/23/23 20:25 01/23/23 20:23 01/23/23 20:23 01/23/23 20:22 01/23/23 20:22 01/23/23 20:22 01/23/23 20:20 01/23/23 20:20 01/23/23 20:17 01/23/23 20:17 01/23/23 20:14 01/23/23 20:14 01/23/23 20:12 01/23/23 20:12 01/23/23 20:10 01/23/23 20:10 01/23/23 20:07 01/23/23 20:07 01/23/23 20:06 01/23/23 20:06 01/23/23 20:02 01/23/23 20:02 01/23/23 19:57 01/23/23 19:57 01/23/23 19:54 01/23/23 19:54 01/23/23 19:52 01/23/23 19:52 01/23/23 19:47 01/23/23 19:47 01/23/23 19:44 01/23/23 19:44 01/23/23 19:42 01/23/23 19:42 01/23/23 19:16 01/23/23 19:16
[2023-01-24] MEDS: FERROUS SULFATE 325 MG TAB PO SCH (09:22)
[2023-01-24] MEDS: DOCUSATE SODIUM 100 MG CAP PO SCH ×2 (09:22→22:45)
[2023-01-24] MEDS: PRENATAL VITAMIN 1 TAB PO SCH (09:23)
[2023-01-24] MEDS ORDERED: bisacodyL 5 MG TABEC PO SCH ×2 (20:00→22:37)
[2023-01-24] MEDS ORDERED: Nursing to Pharmacy Communication SCH (22:30)
[2023-01-25] MEDS: IBUPROFEN 600 MG TAB PO PRN ×2 (03:14→07:57)
--- NOTE | 2023-01-25 07:20 | Obstetrical Progress Note ---
Date of Service January 25, 2023 Assessment & Plan (1) Encounter for care and examination after delivery: 32 yo PP2 from , doing well -Meeting all pp milestones -Rh+/rubella immune/ -f/u 6 weeks for appt, stable for dc home Subjective Ambulation: ambulating normally Voiding: no voiding problems Passing Gas:: Yes Diet Tolerance:: regular diet Lochia:: Small Feeding Type:: breast feeding Pain well managed with medication Review of Systems Denies fevers, chills, n/v, MALIK, CP, SOB Physical Exam Constitutional WD/WN, vitals as above no acute distress Respiratory normal respiratory effort, lungs clear to auscultation Cardiovascular RRR, no murmur, no edema Gastrointestinal (Abdomen) Percussion/Palpation: abdomen soft; abdomen nontender fundus firm at umbilicus and NT Musculoskeletal BLE symmetric, nonerythematous, nontender Results & Data Vital Signs (Past 12 Hours) Vital Signs Temp Pulse Resp BP Pulse Ox O2 Del Method 01/24/23 22:25 97.9 F 78 18 108/69 100 Room Air
[2023-01-25] MEDS: DOCUSATE SODIUM 100 MG CAP PO SCH (07:58)
[2023-01-25] MEDS: FERROUS SULFATE 325 MG TAB PO SCH (07:58)
[2023-01-25] MEDS: PRENATAL VITAMIN 1 TAB PO SCH (07:58)
[2023-01-25] MEDS ORDERED: bisacodyL 5 MG TABEC PO SCH (20:00)
== END 2023-01-25 13:15 | disposition home or self-care (01) | DRG 807 ==
LOC: OPB 14:33 → 4S1 14:34 → 4E2 01-24 02:45